=== PATIENT | male | born 1955 | race African-American/Black ===

== ENCOUNTER 2019-11-01 05:44 | Inpatient (IN) | payer MEDICARE, MEDICAID ==
[~2019-11-01] VITALS: Ht 182.9 cm; Wt 87.1 kg
[2019-11-01 07:56] LABS: BASOPHILS % 0.5 % (0.0-2.0); EOSINOPHILS % 1.6 % (0.0-5.0); HEMATOCRIT. 43.9 % (42.0-52.0); HEMOGLOBIN. 14.3 g/dL (14.0-18.0); LYMPHOCYTES % 32.9 % (20.0-50.0); MEAN CORPUSCULAR HEMOGLOBIN 27.1 pg (28.0-32.0); MEAN CORPUSCULAR VOLUME 83.5 fL (80.0-94.0); MEAN PLATELET VOLUME 8.5 fl (7.4-10.4); MONOCYTES % 8.5 % (2.0-8.0); NEUTROPHILS % 56.5 % (40.0-76.0); PLATELET 246 x1000/uL (130-400); RED BLOOD CELL COUNT 5.26 mill/uL (4.7-6.1); RED CELL DISTRIBUTION WIDTH 16.1 % (11.6-14.6)
[2019-11-01 08:00] LABS: CHLORIDE 111 mEq/L (98-107)
[2019-11-01] MEDS ORDERED: MEROPENEM 1,000 MG in SODIUM CHLORIDE 0.9% 100 ML IV STA (08:08)
[2019-11-01 08:11] LABS: CLARITY URINE CLOUDY (CLEAR); COLOR URINE YELLOW (YELLOW); KETONES URINE NEGATIVE (NEGATIVE); LEUKOCYTE ESTERASE URINE 2+ (NEGATIVE); NITRITE URINE POSITIVE (NEGATIVE); OCCULT BLOOD URINE 1+ (NEGATIVE); PH URINE 5.5 (4.5-8.0); PROTEIN URINE TRACE (NEGATIVE); SPECIFIC GRAVITY URINE 1.023 (1.005-1.030); UROBILINOGEN URINE 0.2 E.U./dL (0.2-1.0)
[2019-11-01] MEDS ORDERED: LACTATED RINGERS 1,000 ML IV SCH (08:15)
[2019-11-01] MEDS ORDERED: super beta prostate PO (08:50)
[2019-11-01] MEDS ORDERED: AZIL80TA PO (08:50)
[2019-11-01] MEDS ORDERED: HYDR-3280 PO (08:50)
[2019-11-01] MEDS ORDERED: FENTANYL CITRATE/PF 50MCG/ML 2ML VIAL ONE (08:53)
[2019-11-01] MEDS ORDERED: LIDOCAINE HCL/PF 1% 10 MG/ML 5ML VIAL ONE (08:54)
[2019-11-01] MEDS ORDERED: MIDAZOLAM HCL 2 MG/2 ML VIAL ONE (08:54)
[2019-11-01] MEDS ORDERED: PROPOFOL 200MG/20ML VIAL IV ONE (08:54)
[2019-11-01] MEDS ORDERED: ROCURONIUM BROMIDE 10MG/ML VIAL 5ML IV ONE (08:59)
[2019-11-01] MEDS ORDERED: SIME125C MT (09:10)
[2019-11-01] MEDS ORDERED: SODIUM CHLORIDE 0.9% 10ML VIAL ONE (09:12)
[2019-11-01] MEDS ORDERED: EPHEDRINE SULFATE 50MG/ML VIAL ONE (09:12)
[2019-11-01] MEDS ORDERED: METOCLOPRAMIDE HCL 10MG/2ML VIAL ONE (09:24)
[2019-11-01] MEDS ORDERED: ONDANSETRON HCL 4MG/2ML INJ ONE (09:24)
[2019-11-01] MEDS ORDERED: HYDRALAZINE 20MG/ML VIAL ONE (09:40)
[2019-11-01] MEDS ORDERED: LORAZEPAM 1MG TABLET PO PRN (09:45)
[2019-11-01] MEDS ORDERED: HYDROMORPHONE HCL/PF 2MG/ML CPJ IV PRN (09:45)
[2019-11-01] MEDS ORDERED: MAGNESIUM HYDROXIDE 400MG/5ML 30ML UDC PO PRN (09:45)
[2019-11-01] MEDS ORDERED: HYDRALAZINE 20MG/ML VIAL IV NR (09:45)
[2019-11-01] MEDS: HYDROCODONE/ACETAMINOPHEN 10/325MG TABLET PO PRN (10:19)
[2019-11-01 12:00] VITALS: BP 105/59
[2019-11-01] MEDS: MEROPENEM 500 MG in SODIUM CHLORIDE 0.9% 50 ML IV SCH ×2 (15:43→22:50)
[2019-11-01 16:00] VITALS: BP 106/61
[2019-11-01 20:00] VITALS: BP 98/52
[2019-11-02] VITALS: BP 97/57
[2019-11-02 04:00] VITALS: BP 101/51
[2019-11-02] MEDS: MEROPENEM 500 MG in SODIUM CHLORIDE 0.9% 50 ML IV SCH (06:02)
[2019-11-02] MEDS: HYDROCODONE/ACETAMINOPHEN 10/325MG TABLET PO PRN (07:19)
[2019-11-02 08:00] VITALS: BP 101/49
[2019-11-02 09:41] VITALS: BP 101/49
== END 2019-11-02 11:43 | disposition home or self-care (01) | DRG 446 ==
LOC: OR 05:44 → 6EST 11:45
PROVIDERS: ADMIT Urology; ATTEND Urology
PROC: 0TJB8ZZ Inspection of Bladder, Via Natural or Artificial Opening Endoscopic (ICD-10-PCS; principal; 2019-11-01)
PROC: 0TND7ZZ Release Urethra, Via Natural or Artificial Opening (ICD-10-PCS; 2019-11-01)
DX: N39.0 Urinary tract infection, site not specified (principal); B96.89 Other specified bacterial agents as the cause of diseases classified elsewhere; N13.9 Obstructive and reflux uropathy, unspecified; I10 Essential (primary) hypertension; Z96.653 Presence of artificial knee joint, bilateral; N36.8 Other specified disorders of urethra; Z85.46 Personal history of malignant neoplasm of prostate; Z87.440 Personal history of urinary (tract) infections; Z87.891 Personal history of nicotine dependence; Z92.3 Personal history of irradiation
CPT/HCPCS: 36415; 71045; 80048; 81003; 85025; 93005; J0360; J2185; J2250; J2405; J2704; J2765; J3010; J3490; J7050

== ENCOUNTER → 2020-03-31 | Outpatient (CLI) | payer MEDICARE, MEDICAID ==
[~2020-03-31] MED LIST: AZIL80TA PO; HYDR-3280 PO; SIME125C MT; super beta prostate PO
== END | disposition home or self-care (01) ==
LOC: LAB 10:15
PROVIDERS: ATTEND Urology
DX: Z01.818 Encounter for other preprocedural examination (principal); Z11.59 Encounter for screening for other viral diseases
CPT/HCPCS: C9803; U0003

== ENCOUNTER 2020-04-03 07:10 | Inpatient (IN) | payer MEDICARE, MEDICAID ==
[~2020-04-03] VITALS: Ht 182.9 cm; Wt 104.8 kg
[2020-04-03] MEDS: LACTATED RINGERS 1,000 ML IV SCH ×2 (08:10→16:52)
[2020-04-03] MEDS ORDERED: TAMS-11 PO (09:07)
[2020-04-03] MEDS ORDERED: PIPERACILLIN/TAZOBACTAM 3.375GM/50ML PREMIX IV STA (09:44)
[2020-04-03] MEDS ORDERED: PIPERACILLIN/TAZOBACTAM 3.375 G in DEXT 5% WATER 100 ML IV SCH (10:00)
[2020-04-03] MEDS ORDERED: FENTANYL CITRATE/PF 50MCG/ML 2ML VIAL ONE (10:54)
[2020-04-03] MEDS ORDERED: MIDAZOLAM HCL 2 MG/2 ML VIAL ONE (10:55)
[2020-04-03] MEDS ORDERED: GENTAMICIN SULF 40MG/ML 2ML VIAL ONE (10:55)
[2020-04-03] MEDS ORDERED: ROCURONIUM BROMIDE 10MG/ML VIAL 5ML IV ONE (10:57)
[2020-04-03] MEDS ORDERED: SUCCINYLCHOLINE CHLORIDE 200MG/10ML IV ONE (10:57)
[2020-04-03] MEDS ORDERED: PROPOFOL 200MG/20ML VIAL IV ONE (10:58)
[2020-04-03] MEDS ORDERED: LIDOCAINE HCL/PF 1% 10 MG/ML 5ML VIAL ONE (10:58)
[2020-04-03] MEDS ORDERED: SODIUM CHLORIDE 0.9% 10ML VIAL ONE (11:15)
[2020-04-03] MEDS ORDERED: EPHEDRINE SULFATE 50MG/ML VIAL ONE (11:15)
[2020-04-03] MEDS ORDERED: DEXAMETHASONE 4MG/ML 1ML VIAL ONE (11:26)
[2020-04-03] MEDS ORDERED: ONDANSETRON HCL 4MG/2ML INJ ONE (11:26)
[2020-04-03] MEDS ORDERED: HYDRALAZINE 20MG/ML VIAL ONE (11:43)
[2020-04-03] MEDS ORDERED: MAGNESIUM HYDROXIDE 400MG/5ML 30ML UDC PO PRN (12:00)
[2020-04-03] MEDS ORDERED: LORAZEPAM 1MG TABLET PO PRN (12:00)
[2020-04-03] MEDS ORDERED: ACETAMINOPHEN 325MG TABLET PO PRN (12:00)
[2020-04-03] MEDS: HYDROMORPHONE HCL/PF 2MG/ML CPJ IV PRN ×4 (12:45→13:33)
[2020-04-03 14:59] VITALS: BP 139/77
[2020-04-03 16:00] VITALS: BP 157/90
[2020-04-03] MEDS ORDERED: PIPERACILLIN/TAZ 3.375G PREMIX 50 ML IV SCH (17:00)
[2020-04-03] MEDS: PIPERACILLIN/TAZOBACTAM 2.25 G in DEXTROSE 5% WATER 50 ML IV SCH (17:34)
[2020-04-03] MEDS ORDERED: CLONIDINE 0.1MG TABLET PO PRN (18:45)
[2020-04-03 20:00] VITALS: BP 149/86
[2020-04-04] VITALS: BP 120/72
[2020-04-04 04:00] VITALS: BP 120/68
[2020-04-04 04:56] LABS: HEMATOCRIT. 38.8 % (42.0-52.0); HEMOGLOBIN. 12.7 g/dL (14.0-18.0); MEAN CORPUSCULAR HEMOGLOBIN 27.4 pg (28.0-32.0); MEAN CORPUSCULAR VOLUME 83.4 fL (80.0-94.0); MEAN PLATELET VOLUME 8.3 fl (7.4-10.4); PLATELET 221 x1000/uL (130-400); RED BLOOD CELL COUNT 4.65 mill/uL (4.7-6.1); RED CELL DISTRIBUTION WIDTH 15.9 % (11.6-14.6)
[2020-04-04 04:57] LABS: CHLORIDE 105 mEq/L (98-107)
[2020-04-04] MEDS: PIPERACILLIN/TAZOBACTAM 2.25 G in DEXTROSE 5% WATER 50 ML IV SCH ×3 (06:05)
[2020-04-04 08:00] VITALS: BP 126/73
[2020-04-04] MEDS ORDERED: DIATR MEGLU/DIATRIZOATE SOLN 30ML PO NR (10:30)
[2020-04-04 12:00] VITALS: BP 144/73
[2020-04-04] MEDS: PIPERACILLIN/TAZOBACTAM 3.375 G in DEXT 5% WATER 100 ML IV SCH ×2 (13:16→18:00)
[2020-04-04] MEDS ORDERED: PIPERACILLIN/TAZOBACTAM 3.375 G/VIAL IV SCH (14:00)
[2020-04-04 16:00] VITALS: BP 157/79
[2020-04-04] MEDS: HYDROCODONE/ACETAMINOPHEN 10/325MG TABLET PO PRN (16:19)
[2020-04-04 18:24] LABS: PLATELET ESTIMATE NORMAL
[2020-04-04 20:00] VITALS: BP 143/78
[2020-04-05] VITALS: BP 157/80
[2020-04-05] MEDS: PIPERACILLIN/TAZOBACTAM 3.375 G in DEXT 5% WATER 100 ML IV SCH ×3 (01:36→14:14)
[2020-04-05 04:00] VITALS: BP 126/73
[2020-04-05] MEDS: LACTATED RINGERS 1,000 ML IV SCH ×2 (06:06→16:16)
[2020-04-05] MEDS ORDERED: FENTANYL CITRATE/PF 50MCG/ML 2ML VIAL ONE (07:33)
[2020-04-05] MEDS ORDERED: MIDAZOLAM HCL 2 MG/2 ML VIAL ONE (07:33)
[2020-04-05] MEDS ORDERED: ETOMIDATE 2MG/ML 10ML VIAL IV ONE (07:34)
[2020-04-05] MEDS ORDERED: LIDOCAINE HCL/PF 1% 10 MG/ML 5ML VIAL ONE (07:34)
[2020-04-05] MEDS ORDERED: SUCCINYLCHOLINE CHLORIDE 200MG/10ML IV ONE (07:38)
[2020-04-05] MEDS ORDERED: ROCURONIUM BROMIDE 10MG/ML VIAL 5ML IV ONE (07:39)
[2020-04-05] MEDS ORDERED: DEXAMETHASONE 4MG/ML 1ML VIAL ONE (08:03)
[2020-04-05] MEDS ORDERED: IOPAMIDOL 20 ML VIAL IT ONE (08:04)
[2020-04-05] MEDS ORDERED: EPHEDRINE SULFATE 50MG/ML VIAL ONE (08:49)
[2020-04-05] MEDS ORDERED: HYDROMORPHONE HCL/PF 2MG/ML CPJ IV PRN (09:00)
[2020-04-05] MEDS: HYDROCODONE/ACETAMINOPHEN 10/325MG TABLET PO PRN ×2 (10:44→17:36)
[2020-04-05 12:00] VITALS: BP 99/69
[2020-04-05 14:15] VITALS: BP 117/87
[2020-04-05 16:00] VITALS: BP 132/82
[2020-04-05 17:40] VITALS: BP 132/82
== END 2020-04-05 18:34 | disposition home or self-care (01) | DRG 468 ==
LOC: OR 07:10 → 6EST 07:11
PROVIDERS: ADMIT Urology; ATTEND Urology
PROC: 0TJB8ZZ Inspection of Bladder, Via Natural or Artificial Opening Endoscopic (ICD-10-PCS; 2020-04-03)
PROC: BT1D1ZZ Fluoroscopy of Right Kidney, Ureter and Bladder using Low Osmolar Contrast (ICD-10-PCS; principal; 2020-04-05)
PROC: 0T768DZ Dilation of Right Ureter with Intraluminal Device, Via Natural or Artificial Opening Endoscopic (ICD-10-PCS; 2020-04-05)
DX: N35.912 Unspecified bulbous urethral stricture, male (principal); N13.6 Pyonephrosis; B96.89 Other specified bacterial agents as the cause of diseases classified elsewhere; Q63.1 Lobulated, fused and horseshoe kidney; Z85.46 Personal history of malignant neoplasm of prostate; Z16.20 Resistance to unspecified antibiotic; R91.8 Other nonspecific abnormal finding of lung field
CPT/HCPCS: 36415; 71045; 71250; 74176; 74430; 80048; 85025; 93005; J0330; J0360; J1100; J1170; J1580; J2250; J2405; J2543; J2704; J3010; J3490; J7060; J7120; Q9966

== ENCOUNTER → 2020-04-29 | Outpatient (CLI) | payer MEDICARE, MEDICAID ==
[~2020-04-29] MED LIST changes: +IBUP-2077 PO; +TAMS-11 PO
== END | disposition home or self-care (01) ==
LOC: LAB 09:57
PROVIDERS: ATTEND Urology
DX: Z01.812 Encounter for preprocedural laboratory examination (principal); Z20.828 Contact with and (suspected) exposure to other viral communicable diseases
CPT/HCPCS: 87635

== ENCOUNTER 2020-05-01 06:33 | Inpatient (IN) | payer MEDICARE, MEDICAID ==
[~2020-05-01] VITALS: Ht 182.9 cm; Wt 84.8 kg
[~2020-05-01 06:33] MED LIST changes: -IBUP-2077 PO
[2020-05-01] MEDS ORDERED: LACTATED RINGERS 1,000 ML IV SCH (07:30)
[2020-05-01] MEDS ORDERED: IBUP-2077 PO (08:01)
[2020-05-01] MEDS ORDERED: GLYCOPYRROLATE 0.2 MG/ML 2ML VIAL ONE (10:46)
[2020-05-01] MEDS ORDERED: LIDOCAINE HCL/PF 1% 10 MG/ML 5ML VIAL ONE (10:46)
[2020-05-01] MEDS ORDERED: MIDAZOLAM HCL 2 MG/2 ML VIAL ONE (10:46)
[2020-05-01] MEDS ORDERED: FENTANYL CITRATE/PF 50MCG/ML 2ML VIAL ONE ×2 (10:46→11:31)
[2020-05-01] MEDS ORDERED: SUCCINYLCHOLINE CHLORIDE 200MG/10ML IV ONE (10:46)
[2020-05-01] MEDS ORDERED: ONDANSETRON HCL 4MG/2ML INJ ONE (10:46)
[2020-05-01] MEDS ORDERED: PROPOFOL 200MG/20ML VIAL IV ONE (10:46)
[2020-05-01] MEDS ORDERED: METOCLOPRAMIDE HCL 10MG/2ML VIAL ONE (10:46)
[2020-05-01] MEDS ORDERED: GENTAMICIN SULF 40MG/ML 2ML VIAL ONE (10:47)
[2020-05-01] MEDS ORDERED: IOPAMIDOL 20 ML VIAL IT ONE (11:25)
[2020-05-01] MEDS ORDERED: HYDROCODONE/ACETAMINOPHEN 10/325MG TABLET PO PRN (11:45)
[2020-05-01] MEDS ORDERED: LORAZEPAM 1MG TABLET PO PRN (11:45)
[2020-05-01] MEDS ORDERED: HYDROCODONE/ACETAMINOPHEN 5/325MG TABLET PO PRN (11:45)
[2020-05-01] MEDS ORDERED: MAGNESIUM HYDROXIDE 400MG/5ML 30ML UDC PO PRN (11:45)
[2020-05-01] MEDS ORDERED: MEPERIDINE HCL/PF 25MG/ML CPJ ONE (12:05)
[2020-05-01] MEDS ORDERED: SODIUM CHLORIDE 0.9% 1,000 ML IV ONE (12:25)
[2020-05-01] MEDS ORDERED: LABETALOL 5MG/ML SYR 20 MG/4 ML SYRINGE IV NR (12:30)
[2020-05-01] MEDS ORDERED: ONDANSETRON HCL 4MG/2ML INJ IV PRN (12:30)
[2020-05-01] MEDS ORDERED: HYDROMORPHONE HCL/PF 2MG/ML CPJ IV PRN (12:30)
[2020-05-01] MEDS ORDERED: MEPERIDINE HCL/PF 25MG/ML CPJ IV PRN (12:30)
[2020-05-01] MEDS ORDERED: MORPHINE SULFATE 2 MG/ML CPJ (NOT FOR IM USE) IV PRN (12:30)
[2020-05-01] MEDS ORDERED: LABETALOL HCL 5MG/ML VIAL 20ML IV ONE (12:39)
[2020-05-01] MEDS ORDERED: ACETAMINOPHEN 325MG TABLET PO PRN (13:45)
[2020-05-01] MEDS ORDERED: PIPERACILLIN/TAZOBACTAM 3.375 G in DEXT 5% WATER 100 ML IV SCH (17:30)
[2020-05-01 18:00] VITALS: BP 114/72
[2020-05-01 19:13] LABS: CHLORIDE 110 mEq/L (98-107)
[2020-05-01 20:00] VITALS: BP 104/60
[2020-05-01] MEDS ORDERED: POTASSIUM CHLORIDE 20MEQ TABLET SR PO SCH (20:00)
[2020-05-01] MEDS: LOSARTAN POTASSIUM 100 MG TABLET PO SCH (20:00)
[2020-05-01] MEDS: TAMSULOSIN HCL 0.4MG SR CAPSULE PO SCH (20:21)
[2020-05-02] VITALS: BP 104/58
[2020-05-02] MEDS: PIPERACILLIN/TAZOBACTAM 3.375 G in DEXT 5% WATER 100 ML IV SCH ×3 (00:23→12:18)
[2020-05-02 04:00] VITALS: BP 109/66
[2020-05-02 06:26] LABS: HEMATOCRIT. 35.1 % (42.0-52.0); HEMOGLOBIN. 11.5 g/dL (14.0-18.0); MEAN CORPUSCULAR HEMOGLOBIN 27.4 pg (28.0-32.0); MEAN CORPUSCULAR VOLUME 84.1 fL (80.0-94.0); MEAN PLATELET VOLUME 9.1 fl (7.4-10.4); PLATELET 115 x1000/uL (130-400); RED BLOOD CELL COUNT 4.18 mill/uL (4.7-6.1); RED CELL DISTRIBUTION WIDTH 16.3 % (11.6-14.6)
[2020-05-02 08:00] VITALS: BP 103/62
[2020-05-02] MEDS: LOSARTAN POTASSIUM 100 MG TABLET PO SCH (09:00)
[2020-05-02 12:00] VITALS: BP 116/62
[2020-05-02 12:19] LABS: PLATELET ESTIMATE SLIGHTLY DECREASED
[2020-05-02] MEDS ORDERED: LEVOFLOXACIN 500MG TABLET PO SCH (15:00)
[2020-05-02] MEDS: MEROPENEM 1,000 MG in SODIUM CHLORIDE 0.9% 100 ML IV SCH (15:27)
[2020-05-02 16:00] VITALS: BP 118/75
[2020-05-02 20:00] VITALS: BP 107/64
[2020-05-02] MEDS: TAMSULOSIN HCL 0.4MG SR CAPSULE PO SCH (22:09)
[2020-05-03] VITALS: BP 105/64
[2020-05-03 04:00] VITALS: BP 128/71
[2020-05-03] MEDS: MEROPENEM 1,000 MG in SODIUM CHLORIDE 0.9% 100 ML IV SCH (05:06)
[2020-05-03 06:39] LABS: CHLORIDE 110 mEq/L (98-107)
[2020-05-03 06:42] LABS: HEMATOCRIT. 33.7 % (42.0-52.0); HEMOGLOBIN. 11.1 g/dL (14.0-18.0); MEAN CORPUSCULAR HEMOGLOBIN 27.2 pg (28.0-32.0); MEAN CORPUSCULAR VOLUME 82.2 fL (80.0-94.0); MEAN PLATELET VOLUME 9.5 fl (7.4-10.4); PLATELET 85 x1000/uL (130-400); RED BLOOD CELL COUNT 4.09 mill/uL (4.7-6.1); RED CELL DISTRIBUTION WIDTH 16.7 % (11.6-14.6)
[2020-05-03] MEDS: LOSARTAN POTASSIUM 100 MG TABLET PO SCH (08:47)
[2020-05-03 09:55] VITALS: BP 128/76
[2020-05-03] MEDS: MULTIVITAMINS,THER W-MINERALS TABLET PO SCH (10:55)
[2020-05-03 10:59] LABS: PLATELET ESTIMATE DECREASED
[2020-05-03 13:28] VITALS: BP 143/77
[2020-05-03] MEDS: LEVOFLOXACIN 500MG TABLET PO SCH (14:40)
[2020-05-03 16:00] VITALS: BP 141/79
[2020-05-03 20:00] VITALS: BP 127/79
[2020-05-03] MEDS: TAMSULOSIN HCL 0.4MG SR CAPSULE PO SCH (21:39)
[2020-05-04] VITALS: BP 110/57
[2020-05-04 04:00] VITALS: BP 149/74
[2020-05-04 08:00] VITALS: BP 133/75
[2020-05-04] MEDS: LEVOFLOXACIN 500MG TABLET PO SCH (08:38)
[2020-05-04] MEDS: MULTIVITAMINS,THER W-MINERALS TABLET PO SCH (08:38)
[2020-05-04] MEDS: LOSARTAN POTASSIUM 100 MG TABLET PO SCH (08:38)
[2020-05-04 12:00] VITALS: BP 130/72
[2020-05-04 13:32] LABS: CHLORIDE 107 mEq/L (98-107)
[2020-05-04 13:42] LABS: HEMATOCRIT. 35.2 % (42.0-52.0); HEMOGLOBIN. 11.5 g/dL (14.0-18.0); MEAN CORPUSCULAR HEMOGLOBIN 26.7 pg (28.0-32.0); MEAN CORPUSCULAR VOLUME 81.7 fL (80.0-94.0); MEAN PLATELET VOLUME 9.7 fl (7.4-10.4); PLATELET 81 x1000/uL (130-400); RED BLOOD CELL COUNT 4.31 mill/uL (4.7-6.1); RED CELL DISTRIBUTION WIDTH 16.8 % (11.6-14.6)
[2020-05-04 16:00] VITALS: BP 133/70
[2020-05-04] MEDS: TAMSULOSIN HCL 0.4MG SR CAPSULE PO SCH (21:19)
[2020-05-04 22:28] LABS: PLATELET ESTIMATE DECREASED
[2020-05-05] VITALS: BP 137/59
[2020-05-05 04:00] VITALS: BP 91/72
[2020-05-05 08:00] VITALS: BP 137/78
[2020-05-05] MEDS: LOSARTAN POTASSIUM 100 MG TABLET PO SCH (08:29)
[2020-05-05] MEDS: LEVOFLOXACIN 500MG TABLET PO SCH (08:29)
[2020-05-05] MEDS: MULTIVITAMINS,THER W-MINERALS TABLET PO SCH (08:29)
[2020-05-05 11:42] VITALS: BP 134/75
[2020-05-05 12:00] VITALS: BP 128/70
[2020-05-05 16:00] VITALS: BP 120/74
[2020-05-24 08:47] LABS: CALCULI WEIGHT 1 mg
[2020-05-24 08:48] LABS: CALC OXALATE DIHYDRATE 21 %; CALC OXALATE MONOHYDRATE 62 %
== END 2020-05-05 16:45 | disposition home or self-care (01) | DRG 710 ==
LOC: OR 06:33 → 6EST 17:35
PROVIDERS: ADMIT Urology; ATTEND Urology
PROC: 0TC68ZZ Extirpation of Matter from Right Ureter, Via Natural or Artificial Opening Endoscopic (ICD-10-PCS; principal; 2020-05-01)
PROC: 0TP98DZ Removal of Intraluminal Device from Ureter, Via Natural or Artificial Opening Endoscopic (ICD-10-PCS; 2020-05-01)
DX: A41.9 Sepsis, unspecified organism (principal); N17.9 Acute kidney failure, unspecified; D69.6 Thrombocytopenia, unspecified; N20.1 Calculus of ureter; D64.9 Anemia, unspecified; N39.0 Urinary tract infection, site not specified; I10 Essential (primary) hypertension; N36.8 Other specified disorders of urethra; Z96.653 Presence of artificial knee joint, bilateral; J43.9 Emphysema, unspecified; Q63.1 Lobulated, fused and horseshoe kidney; Z87.442 Personal history of urinary calculi; Z79.899 Other long term (current) drug therapy; E83.51 Hypocalcemia
CPT/HCPCS: 36415; 71045; 71260; 74018; 80048; 82360; 85025; 87077; 87186; 88300; 88305; 93005; C1769; J0330; J1580; J2175; J2185; J2250; J2405; J2543; J2704; J2765; J3010; J3490; J7050; J7060; Q9966

== ENCOUNTER 2023-05-12 05:13 | Day surgery (SDC) | payer MEDICARE, MEDICAID ==
[~2023-05-12] VITALS: Ht 182.9 cm; Wt 87.5 kg
[~2023-05-12 05:13] MED LIST changes: +ATOR20TA65 PO; -HYDR-3280 PO; +HYDR-4350 PO; +IBUP-2029 PO; -super beta prostate PO
[2023-05-12] MEDS ORDERED: LACTATED RINGERS 1,000 ML IV SCH (06:45)
[2023-05-12] MEDS ORDERED: DEXAMETHASONE 4MG/ML 1ML VIAL ONE (07:33)
[2023-05-12] MEDS ORDERED: ONDANSETRON HCL 4MG/2ML INJ ONE (07:33)
[2023-05-12] MEDS ORDERED: MIDAZOLAM HCL 2 MG/2 ML VIAL ONE (07:34)
[2023-05-12] MEDS ORDERED: FENTANYL CITRATE/PF 50MCG/ML 2ML VIAL ONE (07:34)
[2023-05-12] MEDS ORDERED: PROPOFOL 200MG/20ML VIAL IV ONE (07:34)
[2023-05-12] MEDS ORDERED: LIDOCAINE HCL 1% 10 MG/ML 10ML VIAL ONE (07:34)
[2023-05-12] MEDS ORDERED: ONDANSETRON HCL 4MG/2ML INJ IV PRN (08:00)
[2023-05-12] MEDS ORDERED: HYDROMORPHONE HCL/PF 2MG/ML CPJ IV PRN (08:00)
[2023-05-12] MEDS ORDERED: MEPERIDINE HCL/PF 25MG/ML CPJ IV PRN (08:00)
[2023-05-12] MEDS ORDERED: LABETALOL 5MG/ML SYR 20 MG/4 ML SYRINGE IV PRN (08:00)
[2023-05-12] MEDS ORDERED: TRAMADOL 50MG TABLET PO NR (10:30)
[2023-05-12 10:39] VITALS: BP 176/78; PULSE 65; RESP 21
[2023-05-12] MEDS ORDERED: HYDRALAZINE 20MG/ML VIAL IV NR (11:15)
== END 2023-05-12 11:55 | disposition home or self-care (01) ==
LOC: OR 05:13
PROVIDERS: ATTEND Urology
DX: N35.919 Unspecified urethral stricture, male, unspecified site (principal); N39.0 Urinary tract infection, site not specified; R32 Unspecified urinary incontinence; I12.9 Hypertensive chronic kidney disease with stage 1 through stage 4 chronic kidney disease, or unspecified chronic kidney disease; N18.30 Chronic kidney disease, stage 3 unspecified; E78.00 Pure hypercholesterolemia, unspecified; M17.12 Unilateral primary osteoarthritis, left knee; Z85.46 Personal history of malignant neoplasm of prostate; Z79.899 Other long term (current) drug therapy; Z98.890 Other specified postprocedural states; Z87.891 Personal history of nicotine dependence; Z82.49 Family history of ischemic heart disease and other diseases of the circulatory system
CPT/HCPCS: 52276; 71045; 93005; Z7610 ×19; J3010; J8499; J1100; J0360; J3490; J2250; J2405; J2704; A4217